=== PATIENT | male | born 1955 | race Caucasian/White ===

== ENCOUNTER 2019-04-24 08:40 | Emergency (ER) | payer MEDICARE, BC ==
[2019-04-24] MEDS ORDERED: Ketorolac 30 MG/ML SDV IM ONE (09:03)
--- NOTE | 2019-04-24 09:09 | EDM.PDOC ---
ED HPI GENERAL MEDICAL PROBLEM - General Chief Complaint: Lower Extremity Injury/Pain Stated Complaint: LEFT FOOT SWOLLEN Time Seen by Provider: 04/24/19 08:51 - History of Present Illness INITIAL COMMENTS - FREE TEXT/NARRATIVE: HISTORY AND PHYSICAL: History of present illness: The patient is a 64-year-old male who presents with complaints of pain to his left ankle that he says it started on and he sustained a minor fall after the pain started seemed to have aggravated it and after resting and elevating the area of the pain has subsided over the last 24 hours. He says that he intermittently will have pain in his ankles bilaterally but his right is currently not bothering him nor is his left but his left is the one that was bothering him early in the weekend. He has no warmth or swelling to the area and says that it was painful with movement. When he fell in the bathroom he doesn't recall if he twisted it but he did not notice any immediate redness or swelling. He has no neurosensory changes in his foot or ankle. He says he has a provider at [facility] but has not connected with that person regarding the intermittent nature of the bilateral ankle pain. He says he does not have a diagnosis of arthritis and has not taken any nonsteroidals or anti-inflammatory medications. Currently in the ED he has no symptoms but wanted to get checked out. Review of systems: As per history of present illness and below otherwise all systems reviewed and negative. Past medical history: As per history of present illness and as reviewed below otherwise noncontributory. Surgical history: As per history of present illness and as reviewed below otherwise noncontributory. Social history: No reported history of drug or alcohol abuse. Family history: As per history of present illness and as reviewed below otherwise noncontributory. Physical exam: HEENT: Atraumatic, normocephalic, negative for conjunctival pallor or scleral icterus, mucous membranes moist, throat clear, neck supple, nontender, trachea midline. Lungs: Clear to auscultation, breath sounds equal bilaterally, chest nontender. Heart: S1S2, regular rate and rhythm no overt murmurs Abdomen: Soft, nondistended, nontender. NABS Pelvis: Stable nontender. Genitourinary: Deferred. Rectal: Deferred. Extremities: Atraumatic, bilateral ankles have no soft tissue swelling erythema warmth or joint effusions and there are no palpable bony deformities most specifically in the left ankle and foot as well as the heel and talus. There is no proximal tib-fib pain or calf tenderness and no pedal edema, negative for cords or calf pain. Neurovascular unremarkable. Neuro: Awake, alert, oriented. Cranial nerves II through XII unremarkable. Cerebellum unremarkable. Motor and sensory unremarkable throughout. Exam nonfocal. Diagnostics: X-ray left ankle Therapeutics: Toradol IM offered but pt refused I tried to explain to the patient as he is currently not having any symptoms is very challenging for me to do a full evaluation as he clinically sounds like a intermittent arthritis pain inflammation he is having which is episodic in nature and responds to rest and elevation. I offered to do the x-ray as he did have the minor fall which may have aggravated it and I recommended that he follow-up in the clinic for further episodes of this discomfort when it is actively occurring and I will prescribe him anti-inflammatories Impression: Episodic ankle pain left Definitive disposition and diagnosis as appropriate pending reevaluation and review of above. - Related Data Allergies Allergy/AdvReac Type Severity Reaction Status Date / Time No Known Allergies Allergy Verified 04/24/19 08:54 Home Meds: Home Meds FLUoxetine HCl [Prozac] 20 mg PO BID 04/24/19 [History] risperiDONE 2 mg PO BEDTIME 04/24/19 [History] Past Medical History HEENT History: Reports: Impaired Vision Psychiatric History: Reports: Depression - Infectious Disease History Infectious Disease History: Reports: None Social & Family History - Family History Family Medical History: Noncontributory - Tobacco Use Smoking Status *Q: Never Smoker - Caffeine Use Caffeine Use: Reports: None - Recreational Drug Use Recreational Drug Use: No Review of Systems - Review of Systems Review Of Systems: ROS reveals no pertinent complaints other than HPI. ED EXAM, GENERAL - Physical Exam Exam: See Below (See dictation) Course - Vital Signs Last Recorded V/S: Last Vital Signs Temp 36.3 C 04/24/19 08:56 Pulse 83 04/24/19 08:56 Resp 16 04/24/19 08:56 BP 109/70 04/24/19 08:56 Pulse Ox 96 04/24/19 08:56 - Orders/Labs/Meds Meds: Medications Discontinued Medications Generic Name Dose Route Start Last Admin Trade Name Freq PRN Reason Stop Dose Admin Ketorolac Tromethamine 30 mg 04/24/19 09:03 04/24/19 09:16 Toradol IM 04/24/19 09:04 Not Given ONETIME ONE Departure - Departure Time of Disposition: 09:48 Disposition: Home, Self-Care 01 Condition: Good Clinical Impression: Ankle pain Qualifiers: Chronicity: unspecified Laterality: unspecified laterality Qualified Code(s): M25.579 - Pain in unspecified ankle and joints of unspecified foot - Discharge Information Referrals: PCP,None [Primary Care Provider] - Forms: ED Department Discharge Additional Instructions: The following information is given to patients seen in the emergency department who are being discharged to home. This information is to outline your options for follow-up care. We provide all patients seen in our emergency department with a follow-up referral. The need for follow-up, as well as the timing and circumstances, are variable depending upon the specifics of your emergency department visit. If you don't have a primary care physician on staff, we will provide you with a referral. We always advise you to contact your personal physician following an emergency department visit to inform them of the circumstance of the visit and for follow-up with them and/or the need for any referrals to a consulting specialist. The emergency department will also refer you to a specialist when appropriate. This referral assures that you have the opportunity for followup care with a specialist. All of these measure are taken in an effort to provide you with optimal care, which includes your followup. Under all circumstances we always encourage you to contact your private physician who remains a resource for coordinating your care. When calling for followup care, please make the office aware that this follow-up is from your recent emergency room visit. If for any reason you are refused follow-up, please contact the [facility] emergency department at and ask to speak to the emergency department charge nurse [facility] [address] [place] [address] [address] [place] [address] [id number] [facility] Professional Building [address] [place] [address] [phone] [id number] Ice and elevate the ankle joints every time he started having swelling pain or discomfort as we discussed. Use the diclofenac as you have been prescribed as needed when you have a flareup and please call and schedule a follow-up appointment in the clinic with your provider or one of our providers for further care and evaluation of this. Return to ER as needed and as discussed
--- NOTE | 2019-04-24 09:40 | CR ---
Indication: Pain. Technique: Three views of the left ankle were obtained. Comparison: None Findings: The ankle mortise is intact. The talar dome is intact. No acute fracture or subluxation is identified. Impression: No acute fracture. Dictated by Za Joyner MD @ Apr 24 2019 9:37AM Signed by Dr. Za Joyner @ Apr 24 2019 9:38AM
== END 2019-04-24 10:24 | disposition home or self-care (01) ==
LOC: MW.ED 08:40
DX: M25.572 Pain in left ankle and joints of left foot (principal); F32.9 Major depressive disorder, single episode, unspecified; Z79.899 Other long term (current) drug therapy
CPT/HCPCS: 73610-26-LT; 73610-LT; 99283-25